=== PATIENT | female | born 2000 | race Caucasian/White ===

== ENCOUNTER 2023-06-08 20:37 | Emergency (ER) | payer MEDICAID, SELFPAY ==
[2023-06-08 20:59] VITALS: BP 115/67; PULSE 87; RESP 16; TEMP 36.7; O2SAT 99; BMI 21.9
--- NOTE | 2023-06-08 21:56 | ED.GENADULT ---
HPI - General Adult General Chief complaint: Headache/Migraine Stated complaint: headache, vomiting Time Seen by Provider: 06/08/23 21:38 History of Present Illness HPI narrative: Pt c/o nausea, vomiting, severe headache , and dehydration that started . Pt diagnosed CSF leak at [facility] in May ( neurologist did testing d/t chronic migraines). Pt had lumbar puncture Friday morning and has not eaten since . Last dose Zofran around 1200 today 22-year-old young woman presenting to the emergency depart with complaint of headache Since 2014 is had migrainous headaches. Increasingly orthostatic in nature. Was recommended by care providers at [facility] to come to emergency department for IV fluids and antiemetics. She has been taking Zofran which has generally been helpful but sounds to be having trouble keeping anything down now partly due to the degree of pain that she is having. She feels that the pain is driving her nausea. No focal weakness. No loss of vision. No fever. Photophobic and aurophobic. Has been recommended for NSAIDs but not doing enough. 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 I have reviewed the results as shown to me inpatient record digitally. Related Data Home Medications Medication Instructions Recorded Confirmed eletriptan 40 mg tablet 40 mg PO Q2-4H PRN 06/08/23 06/08/23 ondansetron HCl 4 mg tablet 4 mg PO DAILY 06/08/23 06/08/23 tranexamic acid 650 mg tablet 1,300 mg PO QID PRN 06/08/23 06/08/23 zonisamide 50 mg capsule 50 mg PO DAILY 06/08/23 06/08/23 Allergies Allergy/AdvReac Type Severity Reaction Status Date / Time naratriptan Allergy Mild Hives Verified 06/08/23 21:08 Penicillins Allergy Mild Hives Verified 06/08/23 21:08 Review of Systems Status of ROS: Reports: 6 or more systems reviewed and unremarkable except as noted in History and below PFSH PFS Social History Smoking Status: Never smoker Do you use any of these nicotine containing products: None Second hand tobacco smoke exposure: No How often do you have a drink containing alcohol: never AUDIT-C Alcohol total score: 0 Non-prescribed substance use: denies use Exam Narrative: Exam Narrative: Pleasant. Shielding her eyes. Breathing easily. Skin is warm and dry without rash. Procedural/puncture site in the low mid back looks to be without swelling or inflammation. She is moving all extremities without difficulty with good strength well-perfused. Sensation appears to be intact. Cranial nerves 2-12 look to be intact pupils are equal and briskly reactive. Heart is in a regular rate and rhythm Const: Vital Signs, click to edit/add: Vital Signs - 24 hr 06/08/23 20:59 06/08/23 22:30 Temperature 98.1 F Pulse Rate [Pulse Oximeter] 87 82 Respiratory Rate 16 18 Blood Pressure [Ri ght Upper Arm] 115/67 105/70 Pulse Oximetry 99 97 Oxygen Delivery Me thod Room Air Room Air Documenting provider has reviewed patient's vital signs: yes Course Vital Signs Vital signs: Initial Vital Signs Temperature 98.1 F 06/08/23 20:59 Temperature Source Temporal Artery Scan 06/08/23 20:59 Pulse Rate 87 06/08/23 20:59 Respiratory Rate 16 06/08/23 20:59 Blood Pressure 115/67 06/08/23 20:59 Blood Pressure Mean 83 06/08/23 20:59 Blood Pressure Position Supine 06/08/23 20:59 Pulse Oximetry 99 06/08/23 20:59 Oxygen Delivery Method Room Air 06/08/23 20:59 Vital Signs Temperature 98.1 F 06/08/23 20:59 Pulse Rate 87 06/08/23 20:59 Respiratory Rate 16 06/08/23 20:59 Blood Pressure 115/67 06/08/23 20:59 Pulse Oximetry 99 06/08/23 20:59 Oxygen Delivery Method Room Air 06/08/23 20:59 Temperature 98.1 F 06/08/23 20:59 Pulse Rate 90 06/09/23 00:58 Respiratory Rate 18 06/09/23 00:58 Blood Pressure 107/63 06/09/23 00:58 Pulse Oximetry 93 06/09/23 00:58 Oxygen Delivery Method Room Air 06/09/23 00:58 Medical Decision Making MDM Narrative Medical decision making narrative: Reviewed documentation as noted above. Does appear to have a spinal headache on top of history of migraines. Will try to offer some symptomatic relief. Does not appear to be infectious. Vitally well. IVs established. Ordered for normal saline, ketorolac and diphenhydramine. Will try metoclopramide as more focused antiemetic this time. On reassessment nausea overall improved but still with marked headache. Had already discussed need for next step/round of medications with initial interview. Will move to pain dose ketamine. On reassessment is markedly improved and feels she can return home. See patient discharge plan Discharge Plan Discharge Clinical Impression: Spinal headache Patient Disposition: Home w/ Parent or Adult Condition: Improved Additional Instructions: I am happy you are feeling better. I hope you can get effective treatment for this very soon. Can continue to take up to 800 mg of ibuprofen per dose or up to 1000 mg of acetaminophen per dose for pain. Alternative to the ibuprofen might be up to 500 mg naproxen 2 times daily. Stay well-hydrated. Take care in transitions of course. Olmitz from [facility] if needed. Remember that each tablet of Olmitz contains 325 mg of acetaminophen. Prescriptions: No Action ondansetron HCl 4 mg tablet 4 mg PO DAILY tranexamic acid 650 mg tablet 1,300 mg PO QID PRN Rx Instructions: Pt takes 2 tablets by mouth three times daily for five days for the first five days of menstrual period. eletriptan 40 mg tablet 40 mg PO Q2-4H PRN Rx Instructions: do not exceed 2 doses per 24 hrs zonisamide 50 mg capsule 50 mg PO DAILY Follow Up/Referrals: Chelsea Steiner MD [Primary Care Provider] - Stand Alone Forms: [email or web address] Info Instructions
[2023-06-08] MEDS: METOCLOPRAMIDE HCL 10 MG in 0.9 % SODIUM CHLORIDE 100 ml 100 ML 306 MG IVPB (22:26)
[2023-06-08] MEDS: KETOROLAC 30 MG/ML inj IVP (22:26)
[2023-06-08] MEDS: 0.9 % SODIUM CHLORIDE 1000 ml 1,000 ML 2000 ML IV (22:27)
[2023-06-08 22:30] VITALS: BP 105/70; PULSE 82; RESP 18; O2SAT 97
[2023-06-08] MEDS: diphenhydrAMINE 50 MG/ML inj 25 MG IVP (23:19)
[2023-06-08] MEDS: KETAMINE HCL 20 MG in 0.9 % SODIUM CHLORIDE 100 ml 100 ML 300.6 MG IVPB (23:45)
[2023-06-09 00:08] VITALS: BP 105/65; PULSE 82; RESP 16; O2SAT 98
[2023-06-09] MEDS: 0.9 % SODIUM CHLORIDE 1000 ml 1,000 ML 3000 ML IV (00:28)
[2023-06-09 00:58] VITALS: BP 107/63; PULSE 90; RESP 18; O2SAT 93
== END 2023-06-09 01:28 | disposition home or self-care (01) ==
PROVIDERS: Emergency Provider Family Medicine; PCP Family Medicine
DX: G44.89 Other headache syndrome (principal)
CPT/HCPCS: 96365; 96367; 96375; 99284; J1200; J1885; J2765; J3490; J7030